=== PATIENT | male | born 1955 | race Caucasian/White ===

== ENCOUNTER 2016-12-05 10:04 | Day surgery (SDC) | payer OTHER ==
[~2016-12-05] VITALS: Ht 177.8 cm; Wt 90.0 kg
[~2016-12-05 10:04] MED LIST: 0.9% Sodium Chloride 1,000 ML IV PRN; CYCL10TA9 PO; DOCU240C41 PO; HYDR25TA4 PO; LISI-567 PO; OXYC5TAB72 PO; Sodium Chloride LOK Flush 10 mL Syringe IV PRN; ZYL100 PO; fentaNYL-PF 50 mCg/mL 2 mL Inj IVPUSH PRN
[2016-12-05 11:07] VITALS: BP 131/85; PULSE 73; RESP 14; O2SAT 98
[2016-12-05] MEDS ORDERED: OMEP20CA11 PO (11:22)
[2016-12-05 12:06] VITALS: BP 121/71; PULSE 81; RESP 16; O2SAT 95
[2016-12-05 12:16] VITALS: BP 114/68; PULSE 84; RESP 16; O2SAT 95
[2016-12-05 12:25] VITALS: BP 113/69; PULSE 74; RESP 16; O2SAT 97
--- NOTE | 2016-12-05 13:13 | ENDO ---
[address] [address] ENDOSCOPY PROCEDURE PATIENT: GALA HARE : 1955 MR#: [id number] ADMIT: 12/05/2016 JOB ID: [id number] DATE: 12/05/2016 PROCEDURE: Esophagogastroduodenoscopy. INDICATION: Epigastric abdominal pain. The patient's ASA classification is 2. Mallampati score is 2. MEDICATIONS: 1. Versed 5 mg. 2. Fentanyl 100 mcg. INSTRUMENT USED: GIF H 190. PROCEDURE DETAILS: After informed consent was obtained, the patient was brought into the GI suite, where he was placed on oxygen via nasal cannula and monitored with continuous pulse oximeter, telemetry and blood pressure monitoring. A time-out was performed. Then, he was placed in the left lateral decubitus position and medications were administered for sedation. A bite block was placed. A standard EGD scope was then inserted through the bite block and advanced under direct visualization to second portion of duodenum without difficulty. FINDINGS: 1. Normal appearing duodenal bulb, first and second portion. Multiple random biopsies were obtained. 2. Normal-appearing pylorus, antrum and gastric body. 3. Retroflexed views in the gastric body revealed a normal-appearing cardia and fundus. A small hiatal hernia was appreciated. 4. Multiple random biopsies were obtained throughout the antrum and body of the stomach. 5. The diaphragmatic hiatus was at approximately 44 cm and the squamocolumnar junction was at 42 cm. At the squamocolumnar junction, there were two punctate areas of erosions noted consistent with esophagitis. Multiple biopsies were obtained. The remainder the esophagus otherwise unremarkable. IMPRESSION: 1. Mild esophagitis. 2. Small hiatal hernia. RECOMMENDATIONS: 1. Continue PPI daily. 2. Surgical consultation for cholelithiasis. COMPLICATIONS: None. ESTIMATED BLOOD LOSS: Less than 5 mL.
--- NOTE | 2016-12-06 14:27 | PATH ---
SURGICAL PATHOLOGY Attending Physician:Moises Sexton CASE STATUS: Signed Out PATIENT NAME: GALA HARE SR PID: [id number] : 1955 DATE COLLECTED:12/05/2016 20:27 SPECIMEN: 1: Duodenum, Biopsy 2: Gastric, Biopsy 3: Esophagus, Biopsy CLINICAL HISTORY: ABDOMINAL PAIN 1). DUODENUM BIOPSY 2). GASTRIC BIOPSY 3). DISTAL ESOPHAGEAL BIOPSY FINAL DIAGNOSIS: 1.DUODENUM BIOPSY: CHRONIC DUODENITIS WITH FOCAL MUCOSAL EROSION AND AREAS OF FOVEOLAR METAPLASIA. Negative for dysplasia and malignancy. 2.GASTRIC BIOPSIES: MILD CHRONIC GASTRITIS INVOLVING ANTRAL AND FUNDIC MUCOSA. Negative for evidence of Helicobacter. Negative for intestinal metaplasia. Negative for dysplasia and malignancy. 3.DISTAL ESOPHAGUS BIOPSY: FRAGMENTS OF SQUAMOUS MUCOSA, GASTRIC CARDIA-TYPE MUCOSA, AND SOME OXYNTIC-TYPE MUCOSA, ALL NEGATIVE FOR SPECIALIZED METAPLASIA OF TAVERA' S-TYPE ESOPHAGUS. Negative for dysplasia and malignancy. Eosinophils are not increased. ICD10 code R10.9 GROSS DESCRIPTION: The specimen is received in three formalin filled containers labeled with the patient's name. 1). The specimen is sublabeled "duodenum" and consists of 3 portions of tissue which aggregate to 0.3 x 0.3 x 0.2 CM. The specimen is entirely submitted in cassette 1A. 2). The specimen is sublabeled "gastric" and consists of 3 portions of tissue which aggregate to 0.3 x 0.3 x 0.2 CM. The specimen is entirely submitted in cassette 2A. 3). The specimen is sublabeled "distal esophagus" and consists of 2 portions of tissue which aggregate to 0.3 x 0.3 x 0.2 CM. The specimen is entirely submitted in cassette 3A. 12/05/2016 [facility] MICRO DESCRIPTION: See diagnosis. ICD-9 CODES: CPT CODES: 1: 62039 2: 55191 3: 16089 Electronically Signed Out Chai Dumont MD [facility] [address], [place] [address] Technical component performed at [facility], [facility] [address], [place], [address]
[2016-12-31] MEDS ORDERED: ATOR20TA PO (14:38)
[2016-12-31] MEDS ORDERED: OXYC5TAB72 PO (14:38)
[2016-12-31] MEDS ORDERED: CYCL10TA9 PO (14:38)
[2016-12-31] MEDS ORDERED: OMEP20CA11 PO (14:38)
[2016-12-31] MEDS ORDERED: LISI-567 PO (14:38)
[2016-12-31] MEDS ORDERED: HYDR25TA4 PO (14:38)
[2016-12-31] MEDS ORDERED: DOCU250C2 PO (14:38)
[2016-12-31] MEDS ORDERED: ZYL100 PO (14:38)
== END 2016-12-05 23:59 | disposition home or self-care (01) ==
LOC: END 10:04
PROVIDERS: ATTEND Internal Medicine Gastroenterology
DX: K20.9 Esophagitis, unspecified (principal); K29.80 Duodenitis without bleeding; K44.9 Diaphragmatic hernia without obstruction or gangrene; K29.50 Unspecified chronic gastritis without bleeding; I10 Essential (primary) hypertension; E78.5 Hyperlipidemia, unspecified; K21.9 Gastro-esophageal reflux disease without esophagitis
CPT/HCPCS: 43239; 88305; G0500; J2250; J3010; J7030

== ENCOUNTER 2017-01-02 08:13 | Day surgery (SDC) | payer OTHER ==
[~2017-01-02] VITALS: Ht 177.8 cm; Wt 87.2 kg
[2017-01-02] VITALS (9 sets, daily range): BP systolic 108–129; BP diastolic 66–87; PULSE 73–94; RESP 15–18; O2SAT 95–99
[~2017-01-02 08:13] MED LIST changes: -0.9% Sodium Chloride 1,000 ML IV PRN; +ATOR20TA PO; -DOCU240C41 PO; +DOCU250C2 PO; +OMEP20CA11 PO; -Sodium Chloride LOK Flush 10 mL Syringe IV PRN; -fentaNYL-PF 50 mCg/mL 2 mL Inj IVPUSH PRN
[2017-01-02] MEDS ORDERED: Esmolol 10,000 mCg/mL 10 mL Inj ONE (08:14)
[2017-01-02] MEDS ORDERED: Dexamethasone 4 mg/mL Inj ONE (08:14)
[2017-01-02] MEDS ORDERED: Glycopyrrolate 0.2 MG/ML 1mL Inj ONE (08:14)
[2017-01-02] MEDS ORDERED: Ondansetron 2 mg/mL 2 mL Inj ONE (08:14)
[2017-01-02] MEDS ORDERED: fentaNYL-PF 50 mCg/mL 2 mL Inj ONE (08:14)
[2017-01-02] MEDS ORDERED: Rocuronium 10 mg/mL 5 mL Inj ONE (08:14)
[2017-01-02] MEDS ORDERED: Propofol 10,000 mCg/mL 20 mL Inj ONE (08:14)
[2017-01-02] MEDS ORDERED: Neostigmine 1 mg/mL 10 mL Inj ONE (08:14)
[2017-01-02] MEDS ORDERED: Lidocaine PF 1% 30 mL Inj ONE (08:14)
[2017-01-02] MEDS ORDERED: HYDROmorphone 2 mg/mL Inj ONE (08:14)
[2017-01-02] MEDS: Lactated Ringer's 1,000 ML IV SCH ×4 (08:31→11:18)
--- NOTE | 2017-01-02 09:06 | PCM.HPANE ---
Patient Data Date of Service: Jan 02, 2017 Surgeon Admitting Provider: Attending Provider:Rich Caraballo MD Primary Care Physician:Ruddy Bunch DO Other Provider:Sharlene Mccarthy Anesthesia Reason for Visit Gallstones Ht/WT & BMI Height (Feet): 5 Height (Inches): 10 Weight (Kilograms): 87.2 Body Mass Index 27.00 Allergies Coded Allergies: acetaminophen (Verified Allergy, Intermediate, UPSET STOMACH, 04/28/14) ibuprofen (Verified Allergy, Intermediate, UPSET STOMACH, 04/28/14) Penicillins (Verified Allergy, Unknown, rash, 04/27/14) bupropion (Verified Allergy, Unknown, hallucinations, 04/27/14) Past Anesthesia History Anesthesia History: Denies:: Abnormal Airway, Anesthesia Reactions, Difficult Intubation, Fam Anesthesia Reaction, Fam Malignant Hypertherm, Malignant Hyperthermia Diabetes History Hx Diabetes?: Yes Type of Diabetes: Diet Controlled Current Bedside Blood Glucose: 110 MRSA MRSA: No Medications Blood Thinner: Aspirin Hypertension Medication: Yes Home Meds Incl Beta Juan Carlos: No Reported Medications oxyCODONE 5 Mg Tablet5 Mg PO Q4H PRN For Pain Ref 0 12/31/16 Omeprazole 20 Mg Capsule.dr20 Mg PO DAILY Ref 0 12/31/16 Lisinopril 20 Mg Mfzsqd09 Mg PO BID 30 Days Ref 0 12/31/16 Hydrochlorothiazide 25 Mg Sikblj56 Mg PO DAILY 30 Days Ref 0 12/31/16 Docusate Sodium 250 Mg Hkrfyea733 Mg PO BID PRN For Constipation Ref 0 12/31/16 Cyclobenzaprine 10 Mg Lafwyj14 Mg PO BID PRN Spasm 12/31/16 Atorvastatin (Lipitor)20 Mg Axosao24 Mg PO Q2DAY Ref 0 12/31/16 Allopurinol 100 Mg Rhrrin793 Mg PO DAILY Ref 0 12/31/16 Discontinued Reported Medications Omeprazole 20 Mg Capsule.dr20 Mg PO DAILY Ref 0 12/05/16 oxyCODONE 5 Mg Tablet5 Mg PO Q4H PRN For Pain Ref 0 12/04/16 Lisinopril 20 Mg Hwxrxc71 Mg PO BID 30 Days Ref 0 12/04/16 Hydrochlorothiazide 25 Mg Bebhcm49 Mg PO DAILY 30 Days Ref 0 12/04/16 Docusate Calcium (Stool Softener)240 Mg Ljbtmfi886 Mg PO DAILY 12/04/16 Allopurinol 100 Mg Wnydin889 Mg PO DAILY Ref 0 04/03/16 Cyclobenzaprine 10 Mg Nxloax27 Mg PO BID PRN MUSCLE SPASM 04/28/14 History History of ENT Problems?: Yes HEENT History: Positive for:: Sinus Problem (septoplasty hx ) Denies:: Abnormal Airway Cataracts Difficult Intubation Dysphagia Glaucoma Hearing Problem TMJ Denture Type: Full- Upper Full- Lower Hx of Heart Problems?: Yes Cardiovascular History: Positive for:: Cardiac Surgery (cardiac ablation 2001 for palpitations- no recent hx) Hypertension Denies:: AICD Atrial Fibrillation Chest Pain Heart Murmur Irregular Heartbeat Pacemaker Peripheral Vascular Valvular Heart Disease Hx of Respiratory Problem?: No Respiratory History: Positive for:: Cough Pneumonia (remote hx of 1995) Denies:: Asthma COPD Hemoptysis Oxygen Administration Tuberculosis Use of C-PAP Machine Use of Inhalers / NEBS Hx Neurologic Problems?: No Neurological History: Denies:: CVA Dementia Headaches Multiple Sclerosis Parkinson's Disease Seizures Hx of GI Problems?: Yes Gastrointestinal History: Positive for:: Gall Bladder Disease (current admission plan) Gastroesphageal Reflux Heartburn (controlled on medication) Hepatitis (no treatment for, pt states non active per testing 2011) Denies:: Cirrhosis Diverticulitis Hiatal Hernia Liver Disease Rectal Bleeding Hx of Problems?: No Genitourinary History: Denies:: Kidney Stones Urinary Tract Infection Male Hx: Denies:: Prostate Problems Scrotal Mass Testicular Surgery Skin History: Denies:: History Skin Disorders? Pressure Ulcers Hx Musculoskeletal Problems?: Yes Musculoskeletal History: Positive for:: Back Injury Osteoarthritis (upper neck) Denies:: Fibromyalgia Joint Replacement Myasthenia Gravis Hx of Psycho/Social Problems?: No Psycho Social History: Denies:: Anxiety Hx Depression Hx Surgeries?: Yes (cardiac ablation, left shoulder surgery, tonsil, septoplasty) Hx Any Other Health Problems?: Yes Other History: Denies:: Cancer Thyroid Disease History Blood Transfusions: Positive for:: Accept Blood Products? Denies:: Blood Transfusions Hx Diabetes: YesBedside Blood Glucose: 110 Hx Alcohol Use: YesAlcoholic Drinks Per Day: 72ounces monthlyHx Substance Use : Yes (marijuana for sleep- 3times weekly) Smoking Status: Current Some Day Smoker Have You Smoked inLast 12 mo: No Stop/Bang S-Snoring: Do You Snore Loudly: No T-Tired: feel tired, fatigued: No O-Obsered: Observed not breath: No P-Blood Pressure: treated: Yes B- Body Mass Index > 35 kg/m2: No A- Age over 50: Yes N- Neck Large Circumference: No G- Gender Male: Yes ANNY Total Score: 3 ANNY Risk Assessment: High Risk, =/>3 Yes ANNY Category 4 OutPt Procedure: Yes Risk Assessment Category Category 1A: Patient has history of documented sleep apnea, and HAS NOT received any narcotic, sedative or anesthesia administration during this stay. Category 1B: Patient has history of documented sleep apnea, and HAS received any narcotic , sedative or anesthesia administration during this stay Category 2: Patient has SUSPECTED Obstructive Sleep Apnea, and HAS received any narcotic , sedative or anesthesia administration during this stay. Category 3: Patient has SUSPECTED Obstructive Sleep Apnea and HAS NOT received narcotic, sedative or anesthesia administration during this stay. Category 4: Outpatient in Procedural Areas with known sleep apnea or who screen positive for High Risk via the STOP/BANG questionnaire. Exam Exam Vital Signs Vital Signs Date Time Temp Pulse Resp B/P Pulse Ox O2 Delivery O2 Flow Rate FiO2 01/02/17 08:46 36.4 83 18 129/82 96 Room Air General Appearance: Alert, Oriented X3, Cooperative, No Acute Distress HEENT/AIRWAY: MP 2, Neck Movement (limited due to arthritis), Mouth Opening (3 fb), Other (tmd > 3 fb) Lungs: Clear to Auscultation, Normal Air Movement Heart: Exam Unremarkable, Regular Rate/Rhythm, No Murmurs/Rubs/Gallops Additional Information patient with numbness at baseline in right thumb and index finger; does not worsen with neck movement Meds/Labs/Diagnostics Admission Meds Current Medications Lactated Ringer's (Lr) 1,000 ml @ 120 mls/hr Q8H20M IV Last administered on 08:31; Start 01/02/17 at 05:00; Stop 01/02/17 at 13:19 Gabapentin (Neurontin) 600 mg PREOP ONCE PO Last administered on 01/02/17 08: 56; Start 01/02/17 at 06:00; Stop 01/02/17 at 06:01; Status DC Celecoxib (CeleBREX) 200 mg PREOP ONCE PO Last administered on 01/02/17 08:56 ; Start 01/02/17 at 06:00; Stop 01/02/17 at 06:01; Status DC Bedside Blood Glucose: 110 Plan Impression Patient chart reviewed, patient interviewed and anesthestic plan with risks, benefits, and alternatives discussed, and informed consent obtained. NPO Status: 01/02/17 sips water 0630 ASA Physical Status: ASA2 Mod Systemic Disease Anesthetic Plan: GA Bene/Risks/Altern/Consents: Yes HP Complete Prior to Induction: Yes Trav Tapia MD Jan 02, 2017 09:06
[2017-01-02] MEDS ORDERED: Bupivacaine-MPF 0.5% W/EPI 30 mL Inj INFILTRATE ONE (09:59)
[2017-01-02] MEDS ORDERED: EPHEDrine Sulfate 50 mg/mL Inj IVPUSH PRN (10:00)
[2017-01-02] MEDS ORDERED: Ondansetron 2 mg/mL 2 mL Inj IVPUSH PRN (10:00)
[2017-01-02] MEDS ORDERED: Albuterol 2.5 mg/3 mL Inhalation Solution NEB PRN (10:00)
[2017-01-02] MEDS ORDERED: Phenylephrine 10,000 mCg/mL Inj IVPUSH PRN (10:00)
[2017-01-02] MEDS ORDERED: fentaNYL-PF 50 mCg/mL 2 mL Inj IVPUSH PRN (10:00)
[2017-01-02] MEDS ORDERED: Lactated Ringer's 1,000 ML IV SCH (10:00)
[2017-01-02] MEDS ORDERED: Labetalol 5 mg/mL 4 mL Inj IV PRN (10:00)
[2017-01-02] MEDS ORDERED: HYDROmorphone 1 mg/mL Inj IVPUSH PRN (10:00)
[2017-01-02] MEDS ORDERED: Atropine 0.4 mg/mL Inj IVPUSH PRN (10:00)
[2017-01-02] MEDS ORDERED: EPHEDrine Sulfate 50 mg/mL Inj IM PRN (10:00)
[2017-01-02] MEDS ORDERED: MetoCLOpramide 5 mg/mL 2 mL Inj IVPUSH PRN (10:00)
[2017-01-02] MEDS ORDERED: Lactated Ringer's 500 ML IV PRN (10:00)
[2017-01-02] MEDS ORDERED: oxyCODONE-Acetamin 5-325 mg Tablet PO PRN (10:35)
--- NOTE | 2017-01-02 11:27 | PCM.ANEP1 ---
Post Anesthesia Phase 1 PACU Phase 1 Assessment Date of Service: Jan 02, 2017 Vital Signs Vital Signs Date Time Temp Pulse Resp B/P Pulse Ox O2 Delivery O2 Flow Rate FiO2 01/02/17 11:20 36.7 74 17 108/68 96 Room Air 01/02/17 11:15 36.7 77 15 112/66 95 Room Air 01/02/17 11:00 84 17 114/69 97 Room Air 01/02/17 10:50 94 18 120/72 99 Simple Mask 7 01/02/17 10:45 84 17 122/74 99 Simple Mask 7 01/02/17 10:40 83 16 129/80 99 Simple Mask 7 01/02/17 10:38 36.7 129/87 01/02/17 08:46 36.4 83 18 129/82 96 Room Air Anesthetic Administered: GA Level of Alertness: Awake, talking DORANTES's with Equal Strength: Yes Pain: Yes Pain Scale Score: 5 Nausea or Vomiting: No Oxygen Delivery: Room Air Lungs: Clear to Auscultation, Normal Air Movement Dermatome Level: Full Sensation Trav Tapia MD Jan 02, 2017 11:27
--- NOTE | 2017-01-02 11:33 | PCM.ANEP2 ---
Post Anesthesia Evaluation ASA/CMS Post Anesthesia Date of Service: Jan 02, 2017 VS in Patient's Normal Range?: Yes Resp Stable; Airway Patent?: Yes CV Function & Hydration Stable: Yes Mental Status Recovered?: Yes Pain control Satisfactory?: Yes N/V Control Satisfactory?: Yes Trav Tapia MD Jan 02, 2017 11:33
--- NOTE | 2017-01-02 23:35 | OP ---
[address] [address] OPERATIVE REPORT PATIENT: GALA HARE : 1955 MR#: [id number] ADMIT: 01/02/2017 JOB ID: [id number] DATE OF SURGERY: 01/02/2017 ANESTHESIA: General. PREOPERATIVE DIAGNOSIS(ES): Symptomatic cholelithiasis. POSTOPERATIVE DIAGNOSIS(ES): Symptomatic cholelithiasis. OPERATIVE PROCEDURE: Laparoscopic cholecystectomy. SURGEON: Rich Caraballo MD. [employer]ATOR [employer]ANT LABORER: Gibson Doshi PA-C (the assistant front desk manager was required for the safe and timely completion of the case). COMPLICATIONS: None. ESTIMATED BLOOD LOSS: 20 mL. CONDITION: Satisfactory. SPECIMEN: Gallbladder. FINDINGS: The gallbladder appeared unremarkable, though full of stones. INDICATIONS/SIGNIFICANT HISTORY: The patient is a 61-year-old man who has been experiencing episodic postprandial right upper quadrant abdominal pain since March. An ultrasound demonstrated cholelithiasis. A HIDA scan had also been obtained, which showed decreased ejection fraction of 60.2%. He was referred to me and I recommended laparoscopic cholecystectomy. OPERATIVE TECHNIQUE: The patient was taken to the operating room and placed in supine position. General anesthesia was administered. The abdomen was prepped and draped in standard surgical fashion and a procedural pause was performed. Entry was gained into the abdomen through a supraumbilical incision using a 10 mm Optiview trocar. Pneumoperitoneum was achieved without complication. Local anesthetic was injected, followed by insertion of 5 mm ports in the subxiphoid as well as two in the right upper quadrant. The gallbladder was grasped and retracted cephalad. Dissection was began to identify the cystic duct and artery. Critical view of safety was achieved. A single clip was placed on the cystic artery and transected using electrocautery. Three clips placed in the duct and this was transected sharply. The remainder of the dissection of the gallbladder off the cystic plate was then completed and the gallbladder placed in EndoCatch bag. The surgical bed was copiously irrigated and found to be hemostatic. The gallbladder was removed through the umbilical port site. The fascia was closed using 0 PDS suture with a laparoscopic suture passer. The lateral ports were then removed under direct visualization followed by release of pneumoperitoneum and removal of the remaining port. Skin incision was closed using 4-0 Monocryl. The entire procedure was well tolerated without complication. [facility]
--- NOTE | 2017-01-06 14:05 | PATH ---
SURGICAL PATHOLOGY Attending Physician:Rich Caraballo MD CASE STATUS: Signed Out PATIENT NAME: GALA HARE SR PID: [id number] : 1955 DATE COLLECTED:01/02/2017 20:59 SPECIMEN: Gallbladder CLINICAL HISTORY: GALLSTONES 1). GALLBLADDER FINAL DIAGNOSIS: Gallbladder: Cholelithiasis with associated chronic cholecystitis. ICD10 K80.66 GROSS DESCRIPTION: The specimen is received in one formalin filled container labeled with the patient's name, sublabeled "gallbladder" and consists of an intact 9.5 x 3.5 x 3.0 CM gallbladder. The serosa is smooth. The wall is 0.2-0.3 CM in thickness. The mucosa is a dark green in color. The lumen contains a dark green mucoid material and 9 red-brown calculi which range in size from 0.5-1.0 CM in greatest dimension. 5 business center representative sections are submitted in one cassette. 01/02/2017 [facility] ICD-9 CODES: CPT CODES: 1: 63606 Electronically Signed Out Chai Dumont MD [facility] [address] [facility], [place] [address] Technical component performed at [facility], [address] [place] [address] Ave[address], [place], [address]
== END 2017-01-02 23:59 | disposition home or self-care (01) ==
LOC: SAS 08:13
PROVIDERS: ATTEND General Practice
DX: K80.10 Calculus of gallbladder with chronic cholecystitis without obstruction (principal); I10 Essential (primary) hypertension; E11.9 Type 2 diabetes mellitus without complications; E78.5 Hyperlipidemia, unspecified; K21.9 Gastro-esophageal reflux disease without esophagitis; F17.210 Nicotine dependence, cigarettes, uncomplicated; Z79.82 Long term (current) use of aspirin; F12.90 Cannabis use, unspecified, uncomplicated
CPT/HCPCS: 47562; 88304; J1100; J1170; J2405; J2710; J3010; J7120